=== PATIENT | male | born 1955 | race Caucasian/White ===

== ENCOUNTER 2017-01-29 19:47 | Observation (INO) | payer OTHER ==
[~2017-01-29] VITALS: Ht 180.3 cm; Wt 90.9 kg
[~2017-01-29 19:47] MED LIST: GLUCOPHAGE
[2017-01-29] MEDS ORDERED: morphine 4 MG/ML VIAL IV STA (19:52)
[2017-01-29] MEDS ORDERED: ASPIRIN 81 MG TAB PO STA (19:52)
[2017-01-29] MEDS ORDERED: NITROGLYCERIN 2% 1 GM OINT PKT TD STA (19:52)
[2017-01-29] MEDS ORDERED: ONDANSETRON 4 MG INJ IV STA (19:52)
[2017-01-29 19:59] LABS: ADD SCAN DIFF NO
[2017-01-29 20:01] LABS: BASOPHILS % 0.5 % (0.0-2.0); EOSINOPHILS # 0.4 10^3/ul (0.0-0.5); EOSINOPHILS % 6.8 % (0.0-7.0); HEMATOCRIT 40.6 % (42.0-52.0); HEMOGLOBIN 14.1 g/dl (14.0-18.0); LYMPHOCYTES # 2.7 10^3/ul (0.8-2.9); LYMPHOCYTES % 42.4 % (15.0-51.0); MEAN CORPUSCULAR HGB CONC 34.7 g/dl (32.0-37.0); MEAN CORPUSCULAR VOLUME 89.2 fl (82.0-101.0); MEAN PLATELET VOLUME 9.3 fl (7.4-10.4); MONOCYTE # 0.7 10^3/ul (0.3-0.9); MONOCYTES % 10.5 % (0.0-11.0); NEUTROPHIL # 2.5 10^3/ul (1.6-7.5); NEUTROPHILS % 39.6 % (39.0-77.0); PLATELET COUNT 224 10^3/UL (140-415); RED BLOOD COUNT 4.55 10^6/ul (4.70-6.10); RED CELL DISTRIBUTION WIDTH 13.1 % (11.5-14.5); WHITE BLOOD COUNT 6.3 10^3/ul (4.8-10.8)
[2017-01-29 20:18] LABS: INR 0.93; PROTIME 12.5 Sec (12.2-14.2)
[2017-01-29 20:19] LABS: PARTIAL THROMBOPLASTIN TIME 25.2 Sec (25.0-35.0)
[2017-01-29 20:22] LABS: ANION GAP 14 (8-16); BLOOD UREA NITROGEN 14 mg/dl (7-20); CALCIUM 10.1 mg/dl (8.4-10.2); CARBON DIOXIDE 25 mmol/L (21-31); CHLORIDE 110 mmol/L (97-110); CREATININE 0.66 mg/dl (0.61-1.24); GLUCOSE 115 mg/dl (70-220); SODIUM 144 mmol/L (135-144)
[2017-01-29 20:34] LABS: TROPONIN-I < 0.012 ng/ml (0.00-0.12)
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
--- NOTE | 2017-01-29 21:20 | RADRPT ---
PROCEDURE: XR Chest. CLINICAL INDICATION: Chest pain. TECHNIQUE: Portable AP semi erect view of the chest was obtained. COMPARISON: None. FINDINGS: The cardiomediastinal silhouette is within upper normal limits. The lungs are clear. There is no e vidence for pleural effusion, pneumothorax or pulmonary vascular congestion. Thoracic spondylosis i s noted. There is no evidence of acute osseous abnormality. RPTAT:HJJR IMPRESSION: Top normal cardiac silhouette size without evidence for acute intrathoracic pathology. Physician Norma Date Time Electronically viewed and signed by Physician Norma on 01/29/2017 21:20 /
[2017-01-29] MEDS ORDERED: IODIXANOL LOCM 100 ML BTL ONE (21:25)
[2017-01-29] MEDS ORDERED: SOD CHLORIDE 0.9% 100 ML ONE (21:25)
[2017-01-29 22:25] VITALS: TEMP 98
--- NOTE | 2017-01-29 22:49 | RADRPT ---
PROCEDURE: CT angiogram chest. CLINICAL INDICATION: Shortness of breath. TECHNIQUE: CT angiogram of the chest was performed utilizing axial images with reconstructions in sagittal and coronal planes following the intravenous administration of 100 cc Visipaque 320 contras t. The administered radiation dose is CTDI 16.5 mGy, DLP 610 mGy-cm. COMPARISON: No pertinent prior examinations are submitted for comparison. FINDINGS: Pulmonary angiogram: The pulmonary arteries are adequately opacified to the level of the segmental pulmonary artery branches. There is minimal respiratory motion artifact. There is no evidence of p ulmonary embolus. Aortogram: There is no evidence of aortic dissection or aneurysm. Major branches of the aorta are patent. Chest: The lungs are clear. No pleural or pericardial effusions are seen. The tracheobronchial tree is un remarkable. There is mild cardiomegaly. No pericardial effusion is seen. There is diffuse thickening of the esophagus. No mediastinal adenopathy is identified. Visualized Upper abdomen: Unremarkable. Osseous structures: Unremarkable. IMPRESSION: No evidence of pulmonary embolus. Diffuse thickening of the esophagus. Correlation with endoscopy may be warranted. RPTAT: HIKT .Boo Sawant MD, Date Time Electronically viewed and signed by .Boo Sawant MD, on 01/29/2017 22:48 .T/
[2017-01-29] MEDS ORDERED: NITROGLYCERIN (SL) 0.4 MG TAB SL PRN (23:00)
[2017-01-29] MEDS ORDERED: ZOLPIDEM 5 MG TAB PO PRN (23:00)
[2017-01-29] MEDS ORDERED: ACETAMINOPHEN 325 MG TAB PO PRN ×2 (23:00)
[2017-01-29] MEDS ORDERED: morphine 2 MG INJ IV PRN (23:00)
[2017-01-29] MEDS ORDERED: MAGNESIUM HYDROXIDE 30ML CUP PO PRN (23:00)
[2017-01-29] MEDS ORDERED: NACL 0.9% 3 ML SYG IV SCH (23:00)
[2017-01-29] MEDS ORDERED: ONDANSETRON 4 MG INJ IV PRN ×2 (23:00)
[2017-01-29] MEDS ORDERED: LORAZEPAM 2 MG INJ IV ONE (23:30)
[2017-01-29] MEDS ORDERED: INSU100V3 IJ (23:41)
[2017-01-29] MEDS ORDERED: NPH,100I5 SQ (23:42)
[2017-01-29 23:59] VITALS: PULSE 75
[2017-01-30] VITALS (9 sets, daily range): BP systolic 94–129; BP diastolic 61–75; PULSE 67–81; RESP 18–20; Ht 180.3 cm; Wt 90.9 kg
[2017-01-30 00:23] LABS: CREATINE KINASE 625 IU/L (23-200)
[2017-01-30 00:38] LABS: TROPONIN-I < 0.012 ng/ml (0.00-0.12)
[2017-01-30 02:52] LABS: CREATINE KINASE 635 IU/L (23-200)
[2017-01-30 03:10] LABS: TROPONIN-I < 0.012 ng/ml (0.00-0.12)
[2017-01-30] MEDS ORDERED: PANTOPRAZOLE (EC) 40 MG TAB PO SCH (06:00)
[2017-01-30] MEDS ORDERED: ENOXAPARIN 40 MG/0.4 ML SYG SC SCH (09:00)
[2017-01-30 10:37] LABS: CREATINE KINASE 464 IU/L (23-200)
[2017-01-30 10:58] LABS: TROPONIN-I < 0.012 ng/ml (0.00-0.12)
[2017-01-30] MEDS ORDERED: GLUCAGON 1 MG INJ IM PRN (11:00)
[2017-01-30] MEDS ORDERED: GLUCOSE GEL 15 GRAM TUBE PO PRN ×2 (11:00)
[2017-01-30] MEDS ORDERED: GLUCOSE GEL 15 GRAM TUBE BUCCAL PRN (11:00)
[2017-01-30] MEDS ORDERED: SOD CHLORIDE 0.9% 1,000 ML IV SCH (11:00)
[2017-01-30] MEDS ORDERED: DEXTROSE 50% 50 ML SYRINGE IV PRN ×2 (11:00)
[2017-01-30] MEDS ORDERED: ASPIRIN (EC) 81 MG TAB PO SCH (11:30)
[2017-01-30] MEDS: INSULIN ASPART [NOVOLOG] 3 ML PEN SC SCH ×2 (12:44→17:00)
[2017-01-30 12:57] LABS: BILIRUBIN,INDIRECT 0.3 mg/dl (0-1.1); BILIRUBIN,TOTAL 0.3 mg/dl (0.2-1.3); CHOL/HDL RATIO 1.8 RATIO; CREATININE 0.48 mg/dl (0.61-1.24); POTASSIUM 4.3 mmol/L (3.5-5.1)
[2017-01-30 13:07] LABS: CALCIUM 8.6 mg/dl (8.4-10.2)
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
--- NOTE | 2017-01-30 14:01 | PDOCDIS ---
Discharge Instructions CONDITION Patient Condition: Stable HOME CARE INSTRUCTIONS: Diet Instructions: Low Fat /CholesterolSpecial Diet: ADA diet ACTIVITY: Activity Restrictions: Slowly Increase Activity FOLLOW UP/APPOINTMENTS Appointments Resume home Simvastatin or Atorvastatin Follow up with PCP within 1 week Referral to GI for EGD given findings of diffuse thickening of the esophagus on CT chest Referral to cardiology as need outpatient. MAYRA AMN Jan 30, 2017 14:01
[2017-01-30] MEDS ORDERED: ASPI-664 PO (14:02)
--- NOTE | 2017-01-30 14:34 | RADRPT ---
Echocardiogram Report Patient Name: CHIQUI SUN Gender: Male Date: 1955 Study Date: 30-Jan-2017 Food Management Aide: Nova Pappas [facility] Location: [facility] Ref. Physician: CAMILA MAN Quality: Good Procedures: Transthoracic echocardiogram with complete 2D, M-Mode, and doppler examination. Indications: Chest Pain. 2D/M Mode Doppler Measurement Value Normal Ranges Measurement Value Normal Ranges IVSd MM 2.0 cm AV Peak Edil 1.3 m/sec LVIDd 2D 4.1 3.5 - 5.6 cm AV Peak PG 6.8 mmHg LVIDs 2D 2.0 2.1 - 4.1 cm LVOT Peak Edil 1.1 m/sec LVPWd 2D 1.4 0.6 - 1.1 cm LVOT Peak PG 4.5 mmHg IVSd 2D 1.3 0.6 - 1.1 cm MV E Peak Edil 0.9 m/sec AoR Diam 2D 2.8 2.0 - 3.7 cm MV A Peak Edil 1.0 m/sec EDV 2D 73.1 cm3 MV E/A 0.9 ESV 2D 8.0 cm3 MV Decel Time 253 msec LA Dimen 2D 3.1 2.3 - 4.0 cm MV Decel [place] 4 MV E/A 0.9 TR Peak Edil 2.5 m/sec TR Peak PG 24.6 mmHg RVSP 27.6 mmHg Findings Left Ventricle: Normal left ventricular systolic function. Normal left ventricular cavity size. Moderate concentric left ventricular hypertrophy. Ejection fraction is visually estimated at 65 %. Tissue Doppler/Mitral Doppler indices are consistent with impaired relaxation (Stage I diastolic dysfunction). Right Ventricle: Normal right ventricular size. Normal right ventricular systolic function. Left Atrium: The left atrium is normal in size. LA Dimension3.10 cm. Right Atrium: The right atrium is normal in size. Mitral Valve: Normal appearance of the mitral valve. Trace mitral regurgitation. Aortic Valve: Normal appearance of the aortic valve. No significant aortic stenosis or insufficiency. Tricuspid Valve: Normal appearance of the tricuspid valve. Estimated peak PA systolic pressure 27 mmHg. There is trace tricuspid regurgitation. Pulmonic Valve: Pulmonic valve not well visualized. Pericardium: Normal pericardium with no significant pericardial effusion. Aorta: Normal aortic root. IVC: Normal size and normal respiratory collapse consistent with normal right atrial pressure. Conclusions Normal left ventricular systolic function. Normal left ventricular cavity size. Moderate concentric left ventricular hypertrophy. Ejection fraction is visually estimated at 65 %. Tissue Doppler/Mitral Doppler indices are consistent with impaired relaxation (Stage I diastolic dysfunction). Normal right ventricular size. Normal right ventricular systolic function. The left atrium is normal in size. The right atrium is normal in size. No significant valvular stenosis or regurgitation seen. Normal pericardium with no significant pericardial effusion. Electronically Signed By: Juarez Wright 30-Jan-2017 14:33:25 -0700 Patient Name: CHIQUI SUN Study Date: 30-Jan-[id number]
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
[2017-01-30] MEDS ORDERED: ATORVASTATIN 40 MG TAB PO SCH (21:00)
== END 2017-01-30 17:27 | disposition home or self-care (01) ==
LOC: E/R 19:47 → TEL 23:00
PROVIDERS: ADMIT Internal Medicine; ATTEND Internal Medicine
DX: R07.9 Chest pain, unspecified (principal); E11.9 Type 2 diabetes mellitus without complications; F17.210 Nicotine dependence, cigarettes, uncomplicated; E78.5 Hyperlipidemia, unspecified; E66.01 Morbid (severe) obesity due to excess calories; Z68.28 Body mass index [BMI] 28.0-28.9, adult; Z79.4 Long term (current) use of insulin; I51.7 Cardiomegaly; I10 Essential (primary) hypertension; R94.31 Abnormal electrocardiogram [ECG] [EKG]
CPT/HCPCS: 36415; 71010; 71275; 76937; 80048; 80053; 80061; 82550; 82553; 82962; 83036; 84484; 85025; 85610; 85730; 93005; 93306; 96372; 96374; 96375; J1650; J1815; J2060; J2270; J2405; J7030; Q9967; Z7500; Z7502; Z7610; G0378